=== PATIENT | male | born 1995 | race Caucasian/White ===

== ENCOUNTER 2023-04-08 11:51 | Emergency (ER) | payer BC ==
[~2023-04-08] VITALS: Ht 175.3 cm; Wt 78.9 kg
[2023-04-08 11:54] VITALS: O2SAT 99
--- NOTE | 2023-04-08 12:05 | NUR ---
[email or web address], medical screening exam in progress
--- NOTE | 2023-04-08 12:36 | NUR ---
Pt has eloped. Pt has been triaged and seen by MD. All belongings are with Pt. Pt is aware of risks if eloping.
== END 2023-04-08 12:56 | disposition left against medical advice (07) ==
LOC: ER 11:59
DX: T81.30XA Disruption of wound, unspecified, initial encounter (principal)
CPT/HCPCS: A4663